=== PATIENT | female | born 1950 | race Caucasian/White ===

== ENCOUNTER 2018-06-09 03:35 | Inpatient (IN) | payer OTHER, MEDICARE ==
[~2018-06-09] VITALS: Ht 177.8 cm; Wt 113.4 kg
[~2018-06-09 03:35] MED LIST: CRESTOR40 M2 PO; FUROSEMIDE20 M1 PO; LABETALOL HCL100 M1 PO; LEXAPRO10 M1 PO; OMEPRAZOLE20 M2 PO; ST. JOSEPH ASPI81 M1 PO
--- NOTE | 2018-06-09 13:52 | Admission Core Measures ---
Acute Coronary Syndrome (CM) ACS Core Measures Acute Coronary Syndrome Diagnosis No Congestive Heart Failure (NEW) CHF Core Measures Congestive Heart Failure Diagnosis No Cerebrovascular Accident CVA Core Measures CVA/TIA Diagnosis No Venous Thromboembolism VTE Core Ruby (View Protocol) VTE Risk Factors Surgery No Mechanical VTE Prophylaxis d/t N/A MechProphylax Ordered No VTE Pharm Prophylaxis d/t NA PharmProphylax ordered Problem List As ranked by this Provider includes Assessment & Plan 1. Unilateral primary osteoarthritis, right knee HOME MEDS Home Med List Aspirin ([place] Aspirin) 81 MG TABLET.DR 1 TAB PO DAILY HEARTHEALTH ( Reported) Escitalopram Oxalate (Lexapro) 10 MG TABLET 1 TAB PO DAILY ANXIETY (Reported) Furosemide 20 MG TABLET 1 TAB PO DAILY BP (Reported) Labetalol HCl 100 MG TABLET 1 TAB PO BID BP (Reported) Omeprazole 20 MG CAPSULE.DR 1 CAP PO DAILY GERD (Reported) Rosuvastatin Calcium (Crestor) 40 MG TABLET 1 TAB PO QPM CHOLESTEROL ( Reported)
[2018-06-09] MEDS ORDERED: ASPIRIN EC325 M2 PO (13:53)
[2018-06-09] MEDS ORDERED: MIRALAX17 G1 PO (13:53)
[2018-06-09] MEDS ORDERED: DILAUDID2 M1 PO (13:53)
[2018-06-09] MEDS ORDERED: COLACE100 M1 PO (13:53)
--- NOTE | 2018-06-09 13:57 | Patient Discharge Instructions ---
Discharge Instructions General Discharge Information You were seen/treated for: Right knee pain related to unilateral primary osteoarthritis You had these procedures: Right total knee replacement Watch for these problems: Increasing pain despite the use of pain medication Increasing redness, warmth or swelling Drainage of any type from incision Inability to bear weight on operative leg Persistent nausea and vomiting Fever greater than 101.5 degrees Do not soak the wound: Yes No bath, but you may shower: Yes Other wound care: Please keep wound clean and dry. No ointments or lotions of any type on or near incision at any time. No exceptions. Your dressing will be changed by your nurse on the second day after your surgery. Daily dry dressing changes are recommended each day thereafter. Do not soak your wound in a bath or pool at any time until otherwise indicated by your surgeon. You may shower, please dry wound immediately after shower with a clean towel. Special Instructions: Aspirin: You are taking this medication to help prevent blood clot formation. Please take with food to protect your stomach lining. Please take as directed. Constipation: Pain medication can cause constipation. Your surgeon has recommended that you take Colace and miralax each day. You may discontinue this medication if you develop loose stool or diarrhea. If you wish to continue this medication, it is available over the counter. If you are unable to move your bowels after several days, if you are unable to pass gas and are developing bloating, nausea, or vomiting as a result, please contact your doctor. Diet Continue normal diet: Yes Recommended Diet: Heart Healthy Activity Full Activity/No Limits: No Activity Self Limited: Yes Pounds, do NOT lift more than: 10 Acute Coronary Syndrome Inclusion Criteria At DC or during hospital stay patient has or had the following: ACS DIAGNOSIS No Discharge Core Measures Meds if any: Prescribed or Continued at Discharge Meds if any: NOT Prescribed or Continued at Discharge Congestive Heart Failure Inclusion Criteria At DC or during hospital stay patient has or had the following: CHF DIAGNOSIS No Discharge Core Measures Meds if any: Prescribed or Continued at Discharge Meds if any: NOT Prescribed or Continued at Discharge Cerebrovascular accident Inclusion Criteria At DC or during hospital stay patient has or had the following: CVA/TIA Diagnosis No Discharge Core Measures Meds if any: Prescribed or Continued at Discharge Meds if any: NOT Prescribed or Continued at Discharge Venous thromboembolism Inclusion Criteria VTE Diagnosis No VTE Type NONE VTE Confirmed by (Test) NONE Discharge Core Measures - Per Current guidelines, there needs to be overlap - treatment for the first 5 days of Warfarin therapy. - If discharged on Warfarin prior to 5 days of - overlap therapy, the patient will need to be - assessed for post discharge needs including - *Post discharge parental anticoagulation - *Warfarin and/or parental anticoagulation education - *Follow up date to check INR post discharge At least 5 days overlap therapy as Inpatient No Meds if any: Prescribed or Continued at Discharge Note: Overlap Therapy is Warfarin and Anticoagulant Meds if any: NOT Prescribed or Continued at Discharge
--- NOTE | 2018-06-09 13:58 | Surgical Discharge Summary ---
Visit Information Visit Dates Admission Date: 06/09/18 Discharge Date: 06-11-18 History of Present Illness Chief Complaint: Right knee pain related to unilateral primary ostoearthritis Surgical History Pertinent Surgical History: non-contributory Review of Systems: See H&P Hospital Course Course Attending Physician: Gunnar Fonseca MD Primary Care Physician: Virgilio GRANDA,Helen Keller Hospital Course: Patient was admitted to the hospital for an elective total joint replacement. The procedure was tolerated well and patient was transferred to a general surgical floor. Diet was advanced and tolerated. The patient was evaluated and treated by physical therapy. At the time of hospital discharge, the vital signs were stable, neurovascular status was intact, and pain was controlled with the use of oral pain medications. Allergies: Coded Allergies: No Known Allergies (06/07/18) Disposition Summary Disposition Principal Diagnosis: Right knee unilateral primary osteoarthritis Additional Diagnosis: None Discharge Disposition: home health services Discharge Instructions General Discharge Information Code Status: Full Code Patient's Diet: Heart healthy, advance as tolerated Patient's Activity: WBAT Follow-Up Instructions/Appts: Follow up with Dr. Fonseca in 6 weeks from date of surgery. Please call office to arrange &/or confirm this appointment. Medications at Discharge Discharge Medications: Stop taking the following medications: Aspirin ([place] Aspirin) 81 MG TABLET.DR ORAL DAILY Continue taking these medications: Labetalol HCl (Labetalol HCl) 100 MG TABLET 1 Tablet ORAL TWICE DAILY Escitalopram Oxalate (Lexapro) 10 MG TABLET 1 Tablet ORAL DAILY Furosemide (Furosemide) 20 MG TABLET 1 Tablet ORAL DAILY Omeprazole (Omeprazole) 20 MG CAPSULE. 1 Capsule ORAL DAILY Rosuvastatin Calcium (Crestor) 40 MG TABLET 1 Tablet ORAL Every night Start taking the following new medications: Aspirin (Ecotrin*) 325 MG TABLET.DR 1 Tablet ORAL TWICE DAILY Qty = 60 No Refills Docusate Sodium (Colace) 100 MG CAPSULE 1 Capsule ORAL TWICE DAILY Qty = 14 No Refills Instructions: DISCONTINUE USE IF YOU DEVELOP LOOSE STOOL OR DIARRHEA Polyethylene Glycol 3350 (Miralax) 17 GRAM POWD.PACK 1 Packet ORAL DAILY Qty = 7 No Refills Instructions: dissolve in water, DISCONTINUE USE IF YOU DEVELOP LOOSE STOOL OR DIARRHEA Hydromorphone HCl (Dilaudid) 2 MG TABLET 1-2 Tablet ORAL EVERY 4-6 HOURS NEEDED as needed for PAIN Qty = 36 No Refills
[2018-06-09 16:15] VITALS: BP 118/80
--- NOTE | 2018-06-09 16:36 | PN- Orthopedic ---
Subjective Subjective: Post op check: Patient without specific complaints at the present moment. Denies chest pain and shortness of breath. Denies nausea and vomitting. Has yet to void. Has yet to ambulte, is tired presently. Feels that pain is starting to become more pronounced. Objective Vital Signs and I&Os Vital Signs Date Time Temp Pulse Resp B/P B/P Pulse O2 O2 Flow FiO2 Mean Ox Delivery Rate 06/11 0600 98.6 85 18 150/70 95 Room Air 06/11 0000 96 Nasal 2.0L Cannula 06/10 2200 98.3 90 18 156/70 96 Nasal 2.0L Cannula 06/10 2054 98.3 90 18 156/70 06/10 1438 98.3 75 20 122/60 94 Room Air 06/10 1000 97.0 80 18 128/64 92 Room Air 06/10 0858 80 128/64 Intake & Output 06/11 1600 06/11 0800 06/11 0000 06/10 1600 06/10 0800 06/10 0000 Intake Total 300 300 750 950 487.5 Output Total 650 350 500 750 450 Balance -350 -50 250 200 37.5 Intake, IV 750 487.5 Intake, Oral 300 300 750 200 Number 0 0 Bowel Movements Output, Urine 650 350 500 750 450 Physical Exam: General: Alert and oriented x3, no acute distress Cardiac: RRR, s1s2, HR 82 Pulm: CTA bilaterally, non-labored respiratory effort Abd: Non-tender, non-distended Extremities: Moves all extremities. Neurovascular status grossly intact. DP pulses palpable bilaterally. Bilateral calves soft and non-tender Surgical site: Right knee, dressing dry and intact. Full extension. No varous or valgus deformity appreciated. Flexion not assessed on this evaluation. Assessment/Plan Assessment/Plan This is a 68 year old female, POD 0, s/p R TKR. PMH significant for htn, hld, gerd. Has a tremor at baseline, pronounced in bilateral upper extremities. Has a hx of infected left total hip replacement several years ago that required placement of antibiotic spacer along with picc line for shelter iv abx treatment. Now resolved. Had uti preop, treated with full course of macrobid completed yesterday, was asymptomatic prior to and throughout course of treatment. -Ancef 2 gram x2 additional doses for abx ppx -Aspirin 325 mg bid for dvt ppx, along with ALPS and compression stockings -Heart healthy diet, advance as tolerated -Activity: OOB, wbat, knee immobilizer if knee unsteady -Pain regimen to include prn po diluadid as well is iv morphine for breakthrough , offirmev atc x4 doses -Bowel regimen of colace and miralax -Home medications continued Will dc iv fluids tomorrow am if tolerating adequate po Will change dressing post op day 2, reinforce if needed Will discuss plan of care with Dr. Fonseca Core Measures Venous Thromboembolism VTE Risk Factors Surgery No Mechanical VTE Prophylaxis d/t N/A MechProphylax Ordered No VTE Pharm Prophylaxis d/t NA PharmProphylax ordered
--- NOTE | 2018-06-09 17:28 | Operative Report ---
Operative/Inv Procedure Report Surgery Date: 06/09/18 Name of Procedure: Right total knee replacement Pre-Operative Diagnosis: Primary right knee DJD Post-Operative Diagnosis: Same Estimated Blood Loss: 50ml to 100ml Surgeon/Surgical Scrub Technician: Marian GRANDA,Gunnar High Anesthesia: block Operative/Procedure Note Note: Description of Procedure: The patient was taken to the operating room and positively identified. After induction of spinal anesthesia and administration of appropriate pre-operative antibiotics, the patient was positioned supine on the operating room table and all bony prominences were well padded. A well-padded pneumatic tourniquet was placed on the right upper thigh. After performing a surgical timeout, the right lower extremity was prepped and draped in the usual sterile fashion. After exsanguination with Esmarch the tourniquet was inflated to 250mm of mercury. A standard medial parapatellar approach was made to the knee. This was carried down through skin and subcutaneous tissue to the level of the fascia. Meticulous hemostasis was maintained with Bovie electrocautery. The extensor mechanism and patellar retinaculum were opened sharply and the patella was everted. The infrapatellar fat was resected in order to improve exposure. Osteophytes were trimmed from the patella and femoral condyles and the patella was re-everted and tucked laterally. A medial release was performed and the cruciate ligaments were resected. The tibia was then subluxed anteriorly. Utilizing the appropriate extra-medullary guide, the proximal tibia was trimmed perpendicular to the long axis of the tibial shaft. Attention was then turned to the femur. After opening the medullary canal, the distal femoral cut was made in 6 degrees of valgus utilizing the appropriate intra-medullary guide. The extension gap was checked and found to be appropriate. The femur was then sized and the remainder of the femoral cuts were made with a size #4 4-in-1 femoral cutting guide. The flexion gap was checked and found to be symmetric and appropriate. The knee was then trialed with a size 4 femoral component, a size #4 tibial component and a size 11 mm polyethylene insert. The patella was trimmed to accept an A 35 patella. This yielded excellent range of motion, stability and patellar tracking. All trial components were removed and the knee was copiously irrigated with sterile saline. All components were cemented into place with Елена Simplex cement. All the components were of the [employer] Triathlon knee system of the above stated sizes. The knee was again irrigated after cementation. The extensor mechanism and patellar retinaculum were repaired using interrupted #1 vicryl suture. The skin was re-approximated with 2-0 vicryl and closed with louise. A sterile dressing was applied, the tourniquet was deflated, the patient was awakened and taken to the recovery room in satisfactory condition.
[2018-06-09 18:14] VITALS: BP 140/70
[2018-06-09 20:39] VITALS: BP 130/60
[2018-06-09 22:20] VITALS: BP 148/70
[2018-06-10 01:59] VITALS: BP 144/68
[2018-06-10 06:00] VITALS: BP 130/66
--- NOTE | 2018-06-10 08:44 | PN- Orthopedic ---
Subjective Subjective: Mild to moderate pain anterior right knee. No fever no flulike illness. No acute events overnight. She feels well otherwise. She is voiding. Objective Vital Signs and I&Os Vital Signs Date Time Temp Pulse Resp B/P B/P Pulse O2 O2 Flow FiO2 Mean Ox Delivery Rate 06/10 0600 98.1 76 18 130/66 96 Nasal Cannula 06/10 0159 98.1 78 18 144/68 93 Nasal Cannula 06/10 0000 Nasal 2.0L Cannula 06/09 2220 98.3 80 20 148/70 97 06/09 2109 98.0 80 20 130/60 06/09 2039 98.0 80 20 130/60 98 06/09 1814 97.8 83 20 140/70 98 06/09 1615 98.2 67 18 118/80 95 Nasal 2.0L Cannula 06/09 1530 Room Air 2.0L Intake & Output 06/10 1600 06/10 0800 06/10 0000 06/09 1600 06/09 0800 06/09 0000 Intake Total 950 487.5 Output Total 750 450 Balance 200 37.5 Intake, IV 750 487.5 Intake, Oral 200 Number 0 Bowel Movements Output, Urine 750 450 Patient 250 lb Weight Physical Exam: Well-developed well-nourished no apparent distress. HEENT: Atraumatic, extraocular motion intact Neck: Supple, no lymphadenopathy Respiratory: No respiratory distress Extremities: No edema Right lower extremity dressing in place, Mild joint effusion Range of motion is 0- 45 degrees Compression wrap in place. ALPS in place Neurovascularly intact distally Bilateral calves are supple, nontender. Neuro: Alert and oriented x3 Psych: Mood affect normal, normal memory normal judgment. Skin: Warm and dry, no rash on exposed skin Results Last 48 Hours of Labs: Laboratory Tests 06/10 06 Chemistry Sodium (137 - 145 mmol/L) 135 L Potassium (3.5 - 5.1 mmol/L) 4.9 Chloride (98 - 107 mmol/L) 97 L Carbon Dioxide (22 - 30 mmol/L) 28 Anion Gap (5 - 16) 10 BUN (7 - 17 mg/dL) 19 H Creatinine (0.5 - 1.0 mg/dL) 0.9 Estimated GFR (>60 ml/min) > 60 BUN/Creatinine Ratio (7 - 25 %) 21.1 Hematology CBC w Diff Pending WBC Pending RBC Pending Hgb Pending Hct Pending MCV Pending MCH Pending MCHC Pending RDW Pending Plt Count Pending MPV Pending Assessment/Plan Assessment/Plan Postop day #1 status post right total knee arthroplasty Perioperative antibiotics. Pain medication as needed. Out of bed Physical therapy, weightbearing as tolerated DC IV fluids Regular diet Follow a.m. labs Aspirin for DVT prophylaxis ALPS for DVT prophylaxis Regular home meds Dressing change postop day 2 Plan for discharge home in 1-2 days with VNA services Core Measures Venous Thromboembolism VTE Risk Factors Surgery No Mechanical VTE Prophylaxis d/t N/A MechProphylax Ordered No VTE Pharm Prophylaxis d/t NA PharmProphylax ordered
[2018-06-10 09:05] LABS: ABSOLUTE BASOPHIL COUNT 0 /CUMM (0.0-0.2); ABSOLUTE EOSINOPHIL COUNT 0 /CUMM (0.0-0.7); ABSOLUTE LYMPH COUNT 1.5 /CUMM (1.2-3.4); ABSOLUTE MONOCYTE COUNT 1.3 /CUMM (0.10-0.60); BASOPHIL % 0.3 % (0.0-2.0); EOSINOPHIL % 0.2 % (0-5); GRANULOCYTE % 78.9 % (42.2-75.2); HEMATOCRIT 29.3 % (37-47); MEAN CORPUSCULAR HGB 31.9 PG (27.0-31.0); MEAN CORPUSCULAR HGB CONC 33.8 G/DL (33.0-37.0); MEAN CORPUSCULAR VOLUME 94.5 FL (81.0-99.0); MEAN PLATELET VOLUME 7.4 FL (7.4-10.4); PLATELET COUNT 409 /CUMM (130-400); RBC DISTRIBUTION WIDTH 13.4 % (11.5-14.5)
[2018-06-10 10:00] VITALS: BP 128/64; BP 130/68
[2018-06-10 14:38] VITALS: BP 122/60
[2018-06-10 22:00] VITALS: BP 156/70
[2018-06-11 06:00] VITALS: BP 150/70
--- NOTE | 2018-06-11 09:13 | PN- Orthopedic ---
Subjective Subjective: Patient comfortable, no fever no flulike illness pain is controlled. She hopes to be discharged home today Objective Vital Signs and I&Os Vital Signs Date Time Temp Pulse Resp B/P B/P Pulse O2 O2 Flow FiO2 Mean Ox Delivery Rate 06/11 0600 98.6 85 18 150/70 95 Room Air 06/11 0000 96 Nasal 2.0L Cannula 06/10 2200 98.3 90 18 156/70 96 Nasal 2.0L Cannula 06/10 2054 98.3 90 18 156/70 06/10 1438 98.3 75 20 122/60 94 Room Air 06/10 1000 97.0 80 18 128/64 92 Room Air Intake & Output 06/11 1600 06/11 0800 06/11 0000 06/10 1600 06/10 0800 06/10 0000 Intake Total 300 300 750 950 487.5 Output Total 650 350 500 750 450 Balance -350 -50 250 200 37.5 Intake, IV 750 487.5 Intake, Oral 300 300 750 200 Number 0 0 Bowel Movements Output, Urine 650 350 500 750 450 Physical Exam: Well-developed well-nourished no apparent distress. HEENT: Atraumatic, extraocular motion intact Neck: Supple, no lymphadenopathy Respiratory: No respiratory distress Extremities: No edema RIGHT lower extremity dressing in place, Incision line is clean dry and intact with minimal bloody drainage. No signs of infection. Mild joint effusion Range of motion is 0-45. Compression wrap in place. Dressing changed, dry sterile dressing applied ALPS in place Neurovascularly intact distally Bilateral calves are supple, nontender. Neuro: Alert and oriented x3 Psych: Mood affect normal, normal memory normal judgment. Skin: Warm and dry, no rash on exposed skin Results Last 48 Hours of Labs: Laboratory Tests 06/10 0610 Chemistry Sodium (137 - 145 mmol/L) 135 L Potassium (3.5 - 5.1 mmol/L) 4.9 Chloride (98 - 107 mmol/L) 97 L Carbon Dioxide (22 - 30 mmol/L) 28 Anion Gap (5 - 16) 10 BUN (7 - 17 mg/dL) 19 H Creatinine (0.5 - 1.0 mg/dL) 0.9 Estimated GFR (>60 ml/min) > 60 BUN/Creatinine Ratio (7 - 25 %) 21.1 Hematology CBC w Diff NO MAN DIFF REQ WBC (4.8 - 10.8 /CUMM) 14.0 H RBC (4.20 - 5.40 /CUMM) 3.10 L Hgb (12.0 - 16.0 G/DL) 9.9 L Hct (37 - 47 %) 29.3 L MCV (81.0 - 99.0 FL) 94.5 MCH (27.0 - 31.0 PG) 31.9 H MCHC (33.0 - 37.0 G/DL) 33.8 RDW (11.5 - 14.5 %) 13.4 Plt Count (130 - 400 /CUMM) 409 H MPV (7.4 - 10.4 FL) 7.4 Gran % (42.2 - 75.2 %) 78.9 H Lymphocytes % (20.5 - 51.1 %) 11.0 L Monocytes % (1.7 - 9.3 %) 9.6 H Eosinophils % (0 - 5 %) 0.2 Basophils % (0.0 - 2.0 %) 0.3 Absolute Granulocytes (1.4 - 6.5 /CUMM) 11.0 H Absolute Lymphocytes (1.2 - 3.4 /CUMM) 1.5 Absolute Monocytes (0.10 - 0.60 /CUMM) 1.3 H Absolute Eosinophils (0.0 - 0.7 /CUMM) 0 Absolute Basophils (0.0 - 0.2 /CUMM) 0 Assessment/Plan Assessment/Plan Postop day #2 status post right total knee arthroplasty Dressing changed, patient progressing well, orthopedically stable for discharge home today with VNA services if she clears physical therapy cont asa for dvt ppx Core Measures Venous Thromboembolism VTE Risk Factors Surgery No Mechanical VTE Prophylaxis d/t N/A MechProphylax Ordered No VTE Pharm Prophylaxis d/t NA PharmProphylax ordered
== END 2018-06-11 15:00 | disposition home health service (06) | DRG 470 ==
LOC: SDA 03:35 → 2NA 03:35 → ENRESERV 13:52 → ENTRNSPT 15:21 → EDTRNSPTSTS 15:36 → 2NA 15:43 → CMPTRNSPT 15:47 → ENPENDDIS 06-11 13:52 → ENTRNSPT 06-11 14:35 → EDTRNSPTSTS 06-11 14:46 → EDTRNSPT 06-11 14:46 → 2NA 06-11 15:00 → CMPTRNSPT 06-11 15:12
PROVIDERS: Nurse Practitioner
PROC: 0SRC0J9 Replacement of Right Knee Joint with Synthetic Substitute, Cemented, Open Approach (ICD-10-PCS; principal; 2018-06-09)
PROC: 3E0T3BZ Introduction of Anesthetic Agent into Peripheral Nerves and Plexi, Percutaneous Approach (ICD-10-PCS; principal; 2018-06-09)
DX: M17.11 Unilateral primary osteoarthritis, right knee (principal); I10 Essential (primary) hypertension; E78.5 Hyperlipidemia, unspecified; K21.9 Gastro-esophageal reflux disease without esophagitis; R25.1 Tremor, unspecified; Z90.49 Acquired absence of other specified parts of digestive tract; Z96.643 Presence of artificial hip joint, bilateral; Z85.51 Personal history of malignant neoplasm of bladder
CPT/HCPCS: 2NASP; 36592; 82436; 97110-GO; 97116-GO; 97161-GP; 97530-GO; C1713; J0131; J0690; J2550; J7042; Q2036